=== PATIENT | female | born 1945 | race Caucasian/White ===

== ENCOUNTER 2016-12-21 07:00 | Day surgery (SDC) | payer MEDICARE ==
[~2016-12-21] VITALS: Ht 162.6 cm; Wt 64.9 kg
[~2016-12-21 07:00] MED LIST: BIOT1TAB13 PO; CALC-1051 PO; CHOL200025 PO; CINN500C14 PO; GLUC-91 PO; SELE200T11 PO; UBID30CA12 PO; VIT1TABL83 PO; [UNRECOGNIZED DRUG - CODE] PO
[2016-12-21 07:33] VITALS: BP 122/66; PULSE 69; RESP 16; O2SAT 98
[2016-12-21] MEDS ORDERED: fentaNYL-PF 50 mCg/mL 2 mL Inj ONE (07:49)
[2016-12-21] MEDS ORDERED: fentaNYL-PF 50 mCg/mL 2 mL Inj IVPUSH PRN (07:55)
[2016-12-21] MEDS ORDERED: Sodium Chloride LOK Flush 10 mL Syringe IV PRN (07:55)
[2016-12-21] MEDS: 0.9% Sodium Chloride 1,000 ML IV PRN ×2 (08:04→08:16)
[2016-12-21 08:33] VITALS: BP 114/59; PULSE 56; RESP 14; O2SAT 97
[2016-12-21 08:40] VITALS: BP 109/60; PULSE 57; RESP 14; O2SAT 99
--- NOTE | 2016-12-21 08:44 | ENDO ---
[address] [address] ENDOSCOPY PROCEDURE PATIENT: ARIADNA GOODRICH : 1945 MR#: [id number] ADMIT: 12/21/2016 JOB ID: [id number] DATE: 12/21/2016 PRIMARY PROVIDER: Magda Agarwal M.D. PROCEDURE: Colonoscopy with cold forceps polypectomy. INDICATIONS: A 71-year-old female who reports for colon cancer screening. EQUIPMENT: PCF H 190 L. SEDATION: 1. 3 mg Versed. 2. 75 mcg fentanyl. COMPLICATIONS: None identified. BOWEL PREPARATION: Fair, adequate examination. PROCEDURAL INFORMATION: After the risks and benefits were explained, written and verbal informed consent was obtained. The patient was brought into the endoscopy suite and placed into the left lateral decubitus position. Sedation was achieved as above. A digital rectal examination was accomplished. Moderate internal external nonbleeding, nonthrombosed hemorrhoids noted. The scope was introduced into the rectum and advanced to the cecum as identified by the appendiceal orifice and ileocecal valve. The scope was slowly withdrawn to carefully examine the mucosa for any defects or lesions. Retroflexed views were avoided in the rectum. Multiple direct views were made through the dentate line for exclusion of pathology. The colon was decompressed. The scope removed from the patient who tolerated the procedure well. FINDINGS: In the rectum there was a very diminutive polyp, perhaps 2-3 mm, removed with cold forceps. Other than the engorged internal hemorrhoidal cushions, no other significant pathology was appreciated throughout. ENDOSCOPIC DIAGNOSIS: 1. Diminutive rectal polyp. 2. Hemorrhoids. RECOMMENDATIONS: 1. Await histopathology. 2. If adenoma repeat colonoscopy five years. If hyperplastic, repeat colonoscopy can be considered for 10 years' time.
--- NOTE | 2016-12-22 16:13 | PATH ---
SURGICAL PATHOLOGY Attending Physician:Mark Sepulveda CASE STATUS: Signed Out PATIENT NAME: ARIADNA GOODRICH PID: [id number] : 1945 DATE COLLECTED:12/21/2016 16:13 SPECIMEN: Rectum, Biopsy CLINICAL HISTORY: 1. RECTAL POLYP FINAL DIAGNOSIS: 1.RECTUM POLYP, BIOPSY: HYPERPLASTIC POLYP. ICD10 K63.5 GROSS DESCRIPTION: Received in formalin, labeled with the patient' s name and "rectal polyp", is one fragment of perez, soft tissue measuring 0.1 x 0.1 x 0.1 cm. The fragment is totally submitted in one cassette. ([id number]) MICRO DESCRIPTION: See diagnosis. ICD-9 CODES: CPT CODES: 1: 70976 Electronically Signed Out Sonja Zuleta MD [facility] Pathology [facility], [place] [address] Technical component performed at [facility], [facility] [address], [place], [address]
== END 2016-12-21 23:59 | disposition home or self-care (01) ==
LOC: END 07:00
PROVIDERS: ATTEND Internal Medicine Gastroenterology
DX: Z12.11 Encounter for screening for malignant neoplasm of colon (principal); K62.1 Rectal polyp; K64.8 Other hemorrhoids; E78.2 Mixed hyperlipidemia; R91.8 Other nonspecific abnormal finding of lung field; I83.90 Asymptomatic varicose veins of unspecified lower extremity; Z87.891 Personal history of nicotine dependence; Z85.828 Personal history of other malignant neoplasm of skin
CPT/HCPCS: 45380; 99153; G0500; J2250; J3010; J7030